=== PATIENT | male | born 1995 | race Hispanic/Latino ===

== ENCOUNTER 2022-10-12 21:07 | Emergency (ER) | payer MEDICAID, OTHER ==
[~2022-10-12] VITALS: Ht 162.6 cm; Wt 85.7 kg
[~2022-10-12 21:07] MED LIST: ACET-2079 PO; DOCU-116 PO
[2022-10-12 22:30] VITALS: BP 134/87
[2022-10-13] MEDS ORDERED: AMOX-426 PO ×2 (00:16→00:32)
[2022-10-13] MEDS ORDERED: PSEU120T62 PO ×2 (00:16→00:32)
[2022-10-13] MEDS ORDERED: IBUP-2070 PO ×2 (00:16→00:32)
[2022-10-13] MEDS ORDERED: BROM237S PO ×2 (00:17→00:32)
== END 2022-10-12 23:50 | disposition left against medical advice (07) ==
LOC: EDH 21:07
DX: J01.90 Acute sinusitis, unspecified (principal); R05.9 Cough, unspecified; Z79.899 Other long term (current) drug therapy; Z90.89 Acquired absence of other organs
CPT/HCPCS: 87804; 87880

== ENCOUNTER 2022-12-04 12:39 | Emergency (ER) | payer OTHER ==
[~2022-12-04] VITALS: Ht 162.6 cm; Wt 81.6 kg
[~2022-12-04 12:39] MED LIST changes: +AMOX-426 PO; +BROM237S PO; +IBUP-2070 PO; +PSEU120T62 PO
[2022-12-04] MEDS ORDERED: GUAI-487 PO (14:43)
[2022-12-04] MEDS ORDERED: IBUP-2070 PO (14:43)
[2022-12-04 15:12] VITALS: BP 135/95
== END 2022-12-04 15:16 | disposition home or self-care (01) ==
LOC: EDH 12:39
DX: J02.8 Acute pharyngitis due to other specified organisms (principal); B97.89 Other viral agents as the cause of diseases classified elsewhere; Z90.49 Acquired absence of other specified parts of digestive tract; Z79.1 Long term (current) use of non-steroidal anti-inflammatories (NSAID); Z79.2 Long term (current) use of antibiotics; Z79.899 Other long term (current) drug therapy; Z20.822 Contact with and (suspected) exposure to COVID-19
CPT/HCPCS: 99283; 87635; 87880; 87804 ×2; C9803

== ENCOUNTER 2025-08-06 18:30 | Emergency (ER) | payer OTHER ==
[~2025-08-06] VITALS: Ht 162.6 cm; Wt 68.0 kg
[~2025-08-06 18:30] MED LIST changes: +GUAI-487 PO; +IBUP-1492 PO; -IBUP-2070 PO
[2025-08-06 18:59] VITALS: BP 137/80; PULSE 109; RESP 20; TEMP 100.6
--- NOTE | 2025-08-06 19:01 | NUR ---
COVID , FLU AND STREP SWABS COLLECTED AND SENT
--- NOTE | 2025-08-06 19:08 | ERN ---
ED Note History of Present Illness Stated Complaint: FEVER, BODYACHES, VOMITING Chief Complaint: Flu Symptoms Time Seen by MD: 18:59 Time Seen by Midlevel: 18:59 Dictation: The patient is a 30-year-old male with past medical history of appendectomy who presents to the emergency department with complaints of two weeks of body aches, occasional productive cough, nausea, ear pain onset two weeks ago. Patient denies any fevers but reports chills. Allergies: Coded Allergies: No Known Drug Allergies (Verified Allergy, Unknown, 06/07/16) Home Meds Active Scripts Ibuprofen (Ibuprofen) 600 Mg Tablet, 600 MG PO TID PRN for PAIN for 7 Days, #20 TAB Prov:PARRISH PAULINO MD 12/04/22 Guaifenesin/Pseudoephedrne HCl (Mucinex D ER 600-60 mg Tablet) 1 Each Tab.er.12h, 1 EACH PO BID for 7 Days, #20 TAB Prov:PARRISH PAULINO MD 12/04/22 Brompheniram/Phenylephrine/Dm (Dimetapp Cold & Cough Liquid) 237 Ml Solution, 10 ML PO TID for 5 Days, #120 ML Prov:ALEXIA LEARY 10/13/22 Amoxicillin/Potassium Clav (Augmentin 500-125 Tablet) 1 Each Tablet, 1 EACH PO TID for 10 Days, #30 TAB Prov:ALEXIA LEARY 10/13/22 Pseudoephedrine HCl (Sudafed 12 Hour) 120 Mg Tablet.er, 120 MG PO BID for 5 Days, #10 TAB Prov:ALEXIA LEARY 10/13/22 Ibuprofen (Ibuprofen) 600 Mg Tablet, 600 MG PO Q6H PRN for PAIN, #15 TAB Prov:ALEXIA LEARY 10/13/22 Reported Medications Acetaminophen with Codeine (Acetaminophen-Cod #3 Tablet) 1 Each Tablet, 1 EACH PO Q4 HOURS PRN PRN for PAIN LEVEL 1 TO 5, TAB TAKE 1-2 TABLETS PO Q4 HOURS PRN PAIN 06/08/16 Docusate Sodium (Colace) 100 Mg Capsule, 100 MG PO BID, CAP 06/08/16 Past Medical History Past Medical History: No Pertinent History Surgical History: Appendectomy Social History: Lives with family RN Note Reviewed/Agreed w/PFSH: Yes Review of System Dictation Constitutional: Negative for fever, and weight loss positive for body aches, chills Eyes: Negative for injury, pain,redness, and discharge ENT: Negative for injury,pain or swelling positive for bilateral ear pain Cardiovascular: Negative for chest pain, palpitations, and edema Respiratory: Negative for shortness of breath,, and wheezing, positive for cough Abdomen/GI: Negative for abdominal pain, nausea, vomiting, diarrhea, and constipation Back: Negative for injury and pain : Negative for injury, bleeding and discharge MS/Extremity: Negative for injury and deformity Skin: Negative for rash, and discoloration Neuro: Negative for headache, weakness, numbness, tingling, and seizure Psych: Negative for suicide ideation, homicidal ideation, and hallucinations Initial Vital Sign VS Vital Signs Date Time Temp Pulse Resp B/P (MAP) Pulse Ox O2 Delivery O2 Flow Rate FiO2 08/06/25 18:59 100.6 109 20 137/80 98 Room Air Physical Exam Dictation Vital Signs reviewed General Appearance: Alert, oriented x 3, no acute distress, well developed, nourished. Head and Face: non-traumatic. Eyes: PERRL, pink conjunctivas, eyelid no trauma, anterior chamber with arcus senilis. Ears: Pinnas intact and no signs of trauma or + erythema ear canals clear and no discharge TM no erythema Nose: No discharge, no bleeding. Oropharynx: Mouth normal, tongue pink. pharynx clear,no erythema, tonsils no exudates, no abscesses noted, mucous membrane moist Neck: Supple, non-tender, no thyromegaly, no masses, no JVD, no bruits Breast:Deferred Chest:No tenderness, no crepitus, no paradoxical movement, no retractions Lungs:Clear, well-ventilated, symmetric, no rales, no wheezing, no rhonchi, no stridor, good breath sounds bilaterally Heart: Regular rate, regular rhythm, no murmur, no gallops Vascular: no peripheral edema, Abdomen: Soft, positive bowel sounds, nondistended, no guarding, nontender, no rebound, no masses no hepatomegaly, no splenomegaly, no Hope's sign, no hernias. Rectal: Deferred Genital: Deferred Neurological: Normal speech, motor function intact, sensory function intact Musculoskeletal: Neck nontender, full range of motion, back nontender, full range of motion, Extremities: nontender, full range of motion Skin: Color pink, dry, no turgor, no rash, no lacerations, no abrasions, no contusions. 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 CLINICAL HISTORY: COUGH COMPARISON: None provided. FINDINGS: LUNGS: There is no mass, infiltrate, or acute pulmonary abnormality. PLEURAL SPACES: No evidence of pleural effusion or pneumothorax. MEDIASTINUM: Cardiac size and mediastinal contours within normal limits. BONES: No aggressive appearing osseous lesion seen. IMPRESSION: No acute cardiopulmonary pathology is evident. /[facility] Reviewed?: Yes ED Course ED Course Orders Procedure Category Date Status Time Covid Rna Naat LAB 08/06/25 Complete 19:00 Influenza Type A & B, LAB 08/06/25 Complete Rapid 19:00 Rapid (Group A Strep) LAB 08/06/25 Complete 19:00 Chest 1vw RAD 08/06/25 Resulted 19:04 Guaifenesin-Codeine PHA 08/06/25 Complete Syrup 5ml (Robitussi 19:30 Acetaminophen 500mg PHA 08/06/25 Complete Tab (Tylenol 500mg T 19:30 Current Medications Medications (Trade) Dose Ordered Sig/Wilner Route PRN Reason Start Time Stop Time Status Last Admin Dose Admin Acetaminophen (TYLenol 500MG TAB) 1,000 mg ONCE ONCE PO 08/06/25 19:30 08/06/25 19:31 DC 08/06/25 19:21 Guaifenesin/ Codeine Phosphate (RobiTUSSin AC 5 ML SYRUP) 10 ml ONCE ONCE PO 08/06/25 19:30 08/06/25 19:31 DC Vital Signs Date Time Temp Pulse Resp B/P (MAP) Pulse Ox O2 Delivery O2 Flow Rate FiO2 08/06/25 19:21 100.6 08/06/25 18:59 100.6 109 20 137/80 98 Room Air Medical Decision Making MDM The patient is a 30-year-old male with past medical history of appendectomy who presents to the emergency department with complaints of two weeks of body aches, occasional productive cough, nausea, ear pain onset two weeks ago. Patient denies any fevers but reports chills. Serology was positive for strep. X-ray showed no acute pathology. On physical exam patient is no acute distress, nontoxic appearance, stable vital signs. We will discharge patient with antibiotics for strep treatment. Differential diagnosis: URI, pneumonia, strep throat, otitis media Need for hospitalization: Patient does not meet criteria for hospitalization. There are no social concerns with this patient. DX & DISP Disposition: Discharge Departure Impression: Primary Impression: Strep throat Additional Impression: URI (upper respiratory infection) Condition: Stable Scripts Penicillin V Potassium (Penicillin V Potassium) 500 Mg Tablet 1 TAB PO TID for 10 Days, #30 TAB 0 Refills Prov: CHRISTINE LACEY 08/06/25 Additional Instructions: You tested positive for strep. You will be giving antibiotics. Please follow up with the primary doctor in 1-2 days. FOLLOW-UP WITH PRIMARY CARE PROVIDER IN 1 TO 2 DAYS. TAKE MEDICATIONS DIRECTED HERE IN THE EMERGENCY ROOM. OKAY TO CONTINUE HOME MEDICATIONS UNLESS OTHERWISE DISCUSSED DURING YOUR VISIT IN THE EMERGENCY ROOM TODAY. RETURN TO YOUR NEAREST EMERGENCY ROOM IF SYMPTOMS WORSEN OR IF THERE IS NO IMPROVEMENT. CALL 911 IF YOU NEED IMMEDIATE ASSISTANCE. TAKE TYLENOL [id number] N EEDED AND IF NO CONTRAINDICATIONS ARE PRESENT. INCREASE ORAL HYDRATION. A WOUND CULTURE OR URINE CULTURE WAS ORDERED HERE IN THE EMERGENCY ROOM DEPARTMENT PLEASE FOLLOW-UP WITH PRIMARY CARE PROVIDER AND ADVISE THEM TO GET REPEAT PORTS FROM OUR FACILITY. IF YOU HAD ANY GILES WRAP/SPLINTS THAT WERE APPLIED HERE, PLEASE DO NOT REMOVE THEM UNTIL YOU SEE YOUR PRIMARY CARE OR SPECIALTY. Referrals: NONE (PCP) Time of Disposition: 20:54 I have reviewed the case, and I agree with, Diagnosis and Plan CHRISTINE LACEY Aug 06, 2025 19:08
[2025-08-06 19:21] VITALS: TEMP 100.6
[2025-08-06 19:27] LABS: SARS-CoV-2, RNA, NAAT NEGATIVE SARS CoV-2 (NEGATIVE)
[2025-08-06 19:34] LABS: INFLUENZA TYPE A Negative For Type A (NEGATIVE); INFLUENZA TYPE B Negative For Type B (NEGATIVE)
[2025-08-06 19:41] LABS: RAPID GROUP A STREP positive (NEGATIVE)
--- NOTE | 2025-08-06 20:26 | HMCIMG ---
EXAM: CR Chest, 1 View. CLINICAL HISTORY: COUGH COMPARISON: None provided. FINDINGS: LUNGS: There is no mass, infiltrate, or acute pulmonary abnormality. PLEURAL SPACES: No evidence of pleural effusion or pneumothorax. MEDIASTINUM: Cardiac size and mediastinal contours within normal limits. BONES: No aggressive appearing osseous lesion seen. IMPRESSION: No acute cardiopulmonary pathology is evident. /[place]
[2025-08-06] MEDS ORDERED: PENI500T2 PO (20:55)
--- NOTE | 2025-08-06 20:55 | NUR ---
PT STATES HE HAS NEVER TAKEN CODEINE IN THE PAST. PT AGREED TO MOVE IN LINE OF SITE TO BE MONITORED FOR ALLERGIC REACTION. PT AND FAMIY EDUCATED ON ADVERSE REACTIONS SUCH AND NOT LIMITED TO SOB, N/V/D, RASH, HIVES, PT ABLE TO VERBALIZE TEACHBACH VIA VERBAL TEACHBACK.
== END 2025-08-06 21:27 | disposition home or self-care (01) ==
LOC: EDH 18:30
DX: J02.0 Streptococcal pharyngitis (principal); Z90.49 Acquired absence of other specified parts of digestive tract; Z20.822 Contact with and (suspected) exposure to COVID-19
CPT/HCPCS: 99284; 71045; 87635; 87880; 87804 ×2; 96372; J0696